=== PATIENT | female | born 1945 | race Caucasian/White ===

== ENCOUNTER 2018-03-12 20:21 | Observation (INO) | payer MEDICARE, MEDICAID ==
[~2018-03-12] VITALS: Ht 154.9 cm; Wt 60.1 kg
[2018-03-12 20:59] LABS: BASOPHILS # (AUTO) 0.03 x10^3/uL (0-0.1); BASOPHILS % (AUTO) 0 % (0-1); EOSINOPHILS # (AUTO) 0.15 x10^3/uL (0-0.4); EOSINOPHILS % (AUTO) 2 % (1-7); LYMPHOCYTES # (AUTO) 1.83 x10^3/uL (1-3.4); LYMPHOCYTES % (AUTO) 23 % (22-44); MD NO; MEAN CORPUSCULAR HGB CONC 33.3 g/dL (32.4-35.8); MEAN CORPUSCULAR VOLUME 90.1 fL (80-100); MEAN PLATELET VOLUME 8.4 fL (7.4-10.4); MONOCYTES # (AUTO) 0.61 x10^3/uL (0.2-0.8); MONOCYTES % (AUTO) 8 % (2-9); NEUTROPHILS # (AUTO) 5.18 x10^3/uL (1.8-6.8); NEUTROPHILS % (AUTO) 67 % (42-75); PLATELET COUNT 396 x10^3/uL (130-400); RED BLOOD COUNT 4.11 x10^6/uL (3.82-5.3); RED CELL DISTRIBUTION WIDTH 14.5 % (9.6-15.2)
[2018-03-12] MEDS ORDERED: INSULIN REGULAR 100 UNITS/ML, 3ML VIAL SQ-INSULIN ONE (21:00)
[2018-03-12 21:08] LABS: ACETONE, SERUM Trace (10mg/dL) mg/dL (Negative)
[2018-03-12 21:10] LABS: ALANINE AMINOTRANSFERASE 24 U/L (12-78); ANION GAP 9 mmol/L (5-15); CALCIUM 8.5 mg/dL (8.5-10.1); CHLORIDE 95 mmol/L (98-107); CREATININE 1.76 mg/dL (0.55-1.02)
[2018-03-12 21:12] LABS: ALKALINE PHOSPHATASE 115 U/L (45-117); BILIRUBIN,TOTAL 0.4 mg/dL (0.2-1.0); TOTAL PROTEIN 6.5 g/dL (6.4-8.2)
[2018-03-12] MEDS ORDERED: SODIUM CHLORIDE 0.9% 1,000ML IVBOLUS ONE ×2 (21:30→23:00)
[2018-03-12] MEDS ORDERED: PLEASE ENTER ALLERGIES MC SCH (21:30)
[2018-03-12] MEDS ORDERED: PLEASE ENTER HEIGHT AND WEIGHT MC SCH (21:30)
[2018-03-12] MEDS ORDERED: GABA300C10 PO (21:49)
[2018-03-12] MEDS ORDERED: INSU100I7 SQ-INSULIN (21:49)
[2018-03-12] MEDS ORDERED: INSU100I13 SC (21:49)
[2018-03-12] MEDS ORDERED: INSULIN REGULAR 100 UNITS/ML, 3ML VIAL ONE ×2 (22:19→22:24)
[2018-03-12] MEDS ORDERED: INSULIN REGULAR 100 UNITS/ML, 3ML VIAL IVPush ONE (22:30)
[2018-03-13] MEDS ORDERED: DOCUSATE 100 MG CAPSULE PO PRN (01:00)
[2018-03-13] MEDS: GABAPENTIN 300 MG CAPSULE PO SCH ×4 (01:00→20:06)
[2018-03-13] MEDS: INSULIN LISPRO 100 UNITS/ML, PEN SQ-INSULIN SCH ×5 (01:00→20:07)
[2018-03-13] MEDS ORDERED: GLUCAGON 1 MG IM PRN (01:00)
[2018-03-13] MEDS ORDERED: ACETAMINOPHEN 325 MG TABLET PO PRN (01:00)
[2018-03-13] MEDS ORDERED: ONDANSETRON ODT 4 MG PO PRN (01:00)
[2018-03-13] MEDS ORDERED: DEXTROSE 4 GM TAB.CHEW PO PRN (01:00)
[2018-03-13] MEDS: INSULIN GLARGINE 100 UNITS/ML, PEN SQ-INSULIN SCH ×2 (01:00→20:08)
[2018-03-13] MEDS ORDERED: LABETALOL 5MG/ML, 20ML IVPush PRN (01:00)
[2018-03-13] MEDS ORDERED: DEXTROSE 50%, 50ML SYRINGE IVPush PRN (01:00)
[2018-03-13] MEDS ORDERED: TEMAZEPAM 15 MG CAPSULE PO PRN (01:00)
[2018-03-13 01:23] LABS: MICROSCOPIC NOT IND
[2018-03-13 01:27] LABS: CULTURE INDICATED? NO
[2018-03-13] MEDS: SODIUM CHLORIDE 0.9% 1,000 ML IV SCH ×2 (01:44→09:09)
[2018-03-13 02:00] VITALS: BP 124/70
[2018-03-13 06:03] LABS: ANION GAP 6 mmol/L (5-15); CALCIUM 7.9 mg/dL (8.5-10.1); CHLORIDE 110 mmol/L (98-107); CHOLESTEROL, TOTAL 195 mg/dL (140-239); CREATININE 0.98 mg/dL (0.55-1.02)
[2018-03-13 06:08] LABS: CHOL/HDL RATIO 3.4; HDL CHOL % 29 % (28-40); HDL CHOLESTEROL (DIRECT) 57 mg/dL (40-60); LDL CHOLESTEROL,CALCULATED 120 mg/dL (54-169); LDL/HDL RATIO 2.1 (0.5-3.0); TRIGLYCERIDES 90 mg/dL (50-200); VLDL CHOLESTEROL 18 mg/dL (0-25)
[2018-03-13 06:14] LABS: HEMOGLOBIN A1C 13.2 % (4.2-6.3)
[2018-03-13 07:36] VITALS: BP 128/68
[2018-03-13] MEDS: SODIUM CHLORIDE FLUSH 10ML SYR IVF SCH ×2 (09:00→20:08)
[2018-03-13] MEDS: FAMOTIDINE 20 MG TABLET PO SCH ×2 (09:10→20:06)
[2018-03-13 12:01] VITALS: BP 132/70
[2018-03-13] MEDS: ENOXAPARIN 40 MG/0.4 ML SQ SCH (13:30)
[2018-03-13 19:46] VITALS: BP 110/66
[2018-03-13] MEDS ORDERED: INSULIN REGULAR 100 UNITS/ML, 3ML VIAL SQ-INSULIN ONE (22:00)
[2018-03-13] MEDS ORDERED: INSULIN LISPRO 100 UNITS/ML, PEN SQ-INSULIN ONE (22:00)
[2018-03-14 02:36] VITALS: BP 116/61
[2018-03-14 05:09] LABS: ANION GAP 7 mmol/L (5-15); CALCIUM 7.9 mg/dL (8.5-10.1); CHLORIDE 113 mmol/L (98-107); CREATININE 1.18 mg/dL (0.55-1.02)
[2018-03-14] MEDS: INSULIN LISPRO 100 UNITS/ML, PEN SQ-INSULIN SCH ×4 (07:00→21:39)
[2018-03-14] MEDS: GABAPENTIN 300 MG CAPSULE PO SCH ×3 (09:00→21:36)
[2018-03-14] MEDS: FAMOTIDINE 20 MG TABLET PO SCH ×2 (09:00→21:36)
[2018-03-14] MEDS: SODIUM CHLORIDE FLUSH 10ML SYR IVF SCH ×3 (09:00→21:36)
[2018-03-14 09:53] VITALS: BP 117/60
[2018-03-14 13:21] VITALS: BP 121/66
[2018-03-14] MEDS: ENOXAPARIN 40 MG/0.4 ML SQ SCH (13:30)
[2018-03-14 18:34] VITALS: BP 120/66
[2018-03-14] MEDS ORDERED: INSULIN GLARGINE 100 UNITS/ML, PEN SQ-INSULIN SCH (21:00)
[2018-03-15 01:47] VITALS: BP 115/57
[2018-03-15 05:28] LABS: ANION GAP 6 mmol/L (5-15); CALCIUM 8.3 mg/dL (8.5-10.1); CHLORIDE 107 mmol/L (98-107)
[2018-03-15 05:29] LABS: CREATININE 0.95 mg/dL (0.55-1.02)
[2018-03-15 07:05] VITALS: BP 135/68
[2018-03-15] MEDS: INSULIN LISPRO 100 UNITS/ML, PEN SQ-INSULIN SCH ×3 (08:31→17:33)
[2018-03-15] MEDS: FAMOTIDINE 20 MG TABLET PO SCH (08:31)
[2018-03-15] MEDS: GABAPENTIN 300 MG CAPSULE PO SCH ×2 (08:31→17:32)
[2018-03-15] MEDS: SODIUM CHLORIDE FLUSH 10ML SYR IVF SCH (08:31)
[2018-03-15] MEDS: ENOXAPARIN 40 MG/0.4 ML SQ SCH (13:30)
[2018-03-15] MEDS ORDERED: INSU100I11 SQ-INSULIN (13:37)
[2018-03-15] MEDS ORDERED: INSU100I13 SQ-INSULIN (13:37)
[2018-03-15 13:59] VITALS: BP 126/58
[2018-03-15 18:14] VITALS: BP 155/62
[2018-03-16] MEDS ORDERED: [UNRECOGNIZED DRUG - REMARK] (08:16)
[2018-03-16] MEDS ORDERED: [UNRECOGNIZED DRUG - REMARK] (08:16)
== END 2018-03-15 20:15 | disposition home or self-care (01) ==
LOC: ED 23:57 → EDIP 03-13 00:23 → INTOOBSV 03-13 00:23 → 3NE 03-13 01:10
PROVIDERS: ADMIT Internal Medicine; ATTEND Internal Medicine
DX: R53.1 Weakness (principal); N17.9 Acute kidney failure, unspecified; E11.65 Type 2 diabetes mellitus with hyperglycemia; G62.9 Polyneuropathy, unspecified; R35.0 Frequency of micturition; E11.21 Type 2 diabetes mellitus with diabetic nephropathy; Z91.14 Patient's other noncompliance with medication regimen; Z85.21 Personal history of malignant neoplasm of larynx; Z85.819 Personal history of malignant neoplasm of unspecified site of lip, oral cavity, and pharynx
CPT/HCPCS: 36415; 80048; 80053; 80061; 81003; 82010; 82803; 82947; 82962; 83036; 85025; 96361; 96372; 96374; 97163; 97165; 99285; G0378; J1815; J7030

== ENCOUNTER 2018-07-01 09:53 | Day surgery (SDC) | payer MEDICARE, MEDICAID ==
[~2018-07-01] VITALS: Ht 165.1 cm; Wt 55.0 kg
[~2018-07-01 09:53] MED LIST: APIX5TAB PO; GABA300C PO; GABA300C10 PO; INSU100I11 SQ-INSULIN; INSU100I13 SC; INSU100I13 SQ; INSU100I13 SQ-INSULIN; INSU100I7 SQ-INSULIN; LEVO25TA2 PO; [UNRECOGNIZED DRUG - REMARK]; [UNRECOGNIZED DRUG - REMARK]
[2018-07-01] MEDS ORDERED: OMEP-110 PO (10:54)
[2018-07-01] MEDS ORDERED: LACTATED RINGERS 1,000 ML IV SCH (11:00)
[2018-07-01 11:04] VITALS: BP 119/72
[2018-07-01] MEDS ORDERED: PROMETHAZINE 25 MG SUPP PR PRN (12:30)
[2018-07-01] MEDS ORDERED: MEPERIDINE/PF 25MG/0.5ML IVPush PRN (12:30)
[2018-07-01] MEDS ORDERED: PROMETHAZINE 12.5 MG SUPP PR PRN (12:30)
[2018-07-01] MEDS ORDERED: HYDROcodone/APAP 7.5-325MG/15ML UDC PO PRN (12:30)
[2018-07-01] MEDS ORDERED: ONDANSETRON ODT 8 MG PO PRN (12:30)
[2018-07-01] MEDS ORDERED: PROMETHAZINE 25 MG/ML, 1ML IV PRN (12:30)
[2018-07-01] MEDS ORDERED: FENTANYL PF 100 MCG/2ML IV PRN (12:30)
[2018-07-01] MEDS ORDERED: EPHEDRINE 50 MG/ML, 1ML IM PRN (12:30)
[2018-07-01] MEDS ORDERED: MIDAZOLAM 1 MG/ML, 2ML IV PRN (12:30)
[2018-07-01] MEDS ORDERED: DIPHENHYDRAMINE 50 MG/ML, 1ML IVPush PRN (12:30)
[2018-07-01] MEDS ORDERED: ONDANSETRON 2MG/ML, 2ML IV PRN (12:30)
[2018-07-01] MEDS ORDERED: HYDROcodone/APAP 7.5-325MG/15ML UDC ONE (12:45)
[2018-07-01] MEDS ORDERED: PROPOFOL 10 MG/ML, 20ML ONE (15:57)
[2018-07-01] MEDS ORDERED: PROPOFOL 10 MG/ML, 50ML ONE (15:57)
== END 2018-07-01 14:40 | disposition home or self-care (01) ==
LOC: OUT 09:53
PROVIDERS: ATTEND Surgery
DX: Z46.59 Encounter for fitting and adjustment of other gastrointestinal appliance and device (principal); Z98.890 Other specified postprocedural states; E11.9 Type 2 diabetes mellitus without complications
CPT/HCPCS: 43999; 82962; J2704

== ENCOUNTER 2018-07-24 13:51 | Inpatient (IN) | payer MEDICARE, MEDICAID ==
[~2018-07-24] VITALS: Ht 154.9 cm; Wt 55.1 kg
[~2018-07-24 13:51] MED LIST changes: +OMEP-110 PO
[2018-07-24 14:25] LABS: BASOPHILS % (AUTO) 1 % (0-1); EOSINOPHILS # (AUTO) 0.18 x10^3/uL (0-0.4); EOSINOPHILS % (AUTO) 1 % (1-7); LYMPHOCYTES # (AUTO) 1.42 x10^3/uL (1-3.4); LYMPHOCYTES % (AUTO) 11 % (22-44); MD NO; MEAN CORPUSCULAR HEMOGLOBIN 30.2 pg (27.0-34.8); MEAN CORPUSCULAR HGB CONC 33.6 g/dL (32.4-35.8); MEAN PLATELET VOLUME 7.9 fL (7.4-10.4); MONOCYTES # (AUTO) 0.86 x10^3/uL (0.2-0.8); MONOCYTES % (AUTO) 7 % (2-9); NEUTROPHILS # (AUTO) 10.46 x10^3/uL (1.8-6.8); NEUTROPHILS % (AUTO) 80 % (42-75); PLATELET COUNT 472 x10^3/uL (130-400); RED BLOOD COUNT 3.63 x10^6/uL (3.82-5.3); RED CELL DISTRIBUTION WIDTH 14.6 % (9.6-15.2)
[2018-07-24] MEDS ORDERED: SODIUM CHLORIDE FLUSH 10ML SYR IVF ONE (14:30)
[2018-07-24 14:33] LABS: ANION GAP 11 mmol/L (5-15); CALCIUM 8.7 mg/dL (8.5-10.1); CHLORIDE 100 mmol/L (98-107); CREATININE 1.06 mg/dL (0.55-1.02)
[2018-07-24 14:34] LABS: ALANINE AMINOTRANSFERASE 23 U/L (12-78); ALBUMIN 2.5 g/dL (3.4-5.0)
[2018-07-24 14:38] LABS: ALKALINE PHOSPHATASE 162 U/L (45-117); BILIRUBIN,TOTAL 0.3 mg/dL (0.2-1.0); TOTAL PROTEIN 7.7 g/dL (6.4-8.2); TROPONIN I < 0.015 ng/mL (0.000-0.045)
[2018-07-24] MEDS ORDERED: CEFTRIAXONE PMX 1GM/50ML 50 ML ONE (15:03)
[2018-07-24] MEDS: CEFTRIAXONE PMX 1GM/50ML 50 ML IV ONE ×2 (15:07→15:24)
[2018-07-24] MEDS ORDERED: ONDANSETRON 2MG/ML, 2ML IVPush PRN (16:30)
[2018-07-24 16:59] VITALS: BP 142/77
[2018-07-24 17:07] LABS: HEMOGLOBIN A1C 12.1 % (4.2-6.3)
[2018-07-24] MEDS: PIPERACILLIN/TAZO/PMX 3.375GM 50 ML IV SCH ×2 (18:06→23:32)
[2018-07-24] MEDS: INSULIN LISPRO 100 UNITS/ML, PEN SQ-INSULIN SCH ×2 (18:07→19:54)
[2018-07-24] MEDS: SODIUM CHLORIDE 0.9% 1,000 ML IV SCH (18:07)
[2018-07-24] MEDS: ENOXAPARIN 40 MG/0.4 ML SQ SCH (18:07)
[2018-07-24 18:27] VITALS: BP 126/58
[2018-07-24] MEDS: ALBUTEROL/IPRATROPIUM 2.5MG/0.5MG, 3 ML NPPB SCH (19:10)
[2018-07-24] MEDS: GABAPENTIN 300 MG CAPSULE PO SCH (19:54)
[2018-07-24] MEDS ORDERED: TEMPLATE NON-FORMULARY MED. (Gabapentin** (Neurontin**) 300 MG) PO SCH (21:00)
[2018-07-25 01:04] VITALS: BP 125/67
[2018-07-25 05:26] LABS: BASOPHILS # (AUTO) 0.03 x10^3/uL (0-0.1); BASOPHILS % (AUTO) 0 % (0-1); EOSINOPHILS # (AUTO) 0.36 x10^3/uL (0-0.4); EOSINOPHILS % (AUTO) 4 % (1-7); LYMPHOCYTES # (AUTO) 1.44 x10^3/uL (1-3.4); LYMPHOCYTES % (AUTO) 16 % (22-44); MD NO; MEAN CORPUSCULAR HEMOGLOBIN 29.8 pg (27.0-34.8); MEAN CORPUSCULAR HGB CONC 32.7 g/dL (32.4-35.8); MEAN CORPUSCULAR VOLUME 91.1 fL (80-100); MEAN PLATELET VOLUME 8.1 fL (7.4-10.4); MONOCYTES # (AUTO) 0.83 x10^3/uL (0.2-0.8); MONOCYTES % (AUTO) 9 % (2-9); NEUTROPHILS # (AUTO) 6.52 x10^3/uL (1.8-6.8); NEUTROPHILS % (AUTO) 71 % (42-75); PLATELET COUNT 500 x10^3/uL (130-400); RED BLOOD COUNT 3.67 x10^6/uL (3.82-5.3); RED CELL DISTRIBUTION WIDTH 14.7 % (9.6-15.2)
[2018-07-25 05:33] LABS: CHLORIDE 105 mmol/L (98-107)
[2018-07-25] MEDS: LEVOTHYROXINE 25 MCG TABLET PO SCH (05:35)
[2018-07-25] MEDS: PIPERACILLIN/TAZO/PMX 3.375GM 50 ML IV SCH ×2 (05:36→11:47)
[2018-07-25 05:41] LABS: ALANINE AMINOTRANSFERASE 21 U/L (12-78); ALBUMIN 2.3 g/dL (3.4-5.0); ALKALINE PHOSPHATASE 148 U/L (45-117); ANION GAP 10 mmol/L (5-15); BILIRUBIN,TOTAL 0.3 mg/dL (0.2-1.0); CREATININE 1.06 mg/dL (0.55-1.02); TOTAL PROTEIN 7.4 g/dL (6.4-8.2)
[2018-07-25 07:02] VITALS: BP 129/61
[2018-07-25] MEDS: ALBUTEROL/IPRATROPIUM 2.5MG/0.5MG, 3 ML NPPB SCH ×4 (07:17→19:42)
[2018-07-25] MEDS ORDERED: INSULIN GLARGINE 100 UNITS/ML, PEN SQ-INSULIN SCH (08:30)
[2018-07-25] MEDS: GABAPENTIN 300 MG CAPSULE PO SCH ×3 (08:44→21:39)
[2018-07-25] MEDS: SODIUM CHLORIDE 0.9% 1,000 ML IV SCH (08:44)
[2018-07-25] MEDS: INSULIN LISPRO 100 UNITS/ML, PEN SQ-INSULIN SCH ×4 (08:44→21:40)
[2018-07-25] MEDS: INSULIN GLARGINE 100 UNITS/ML, PEN SQ-INSULIN SCH (09:30)
[2018-07-25] MEDS ORDERED: AZITHROMYCIN 500 MG in SODIUM CHLORIDE 0.9% 250 ML IV SCH (12:00)
[2018-07-25 13:09] VITALS: BP 106/54
[2018-07-25 15:07] LABS: RAPID INFLUENZA A Negative (Negative); RAPID INFLUENZA B Negative (Negative)
[2018-07-25] MEDS: ENOXAPARIN 40 MG/0.4 ML SQ SCH (16:50)
[2018-07-25 20:30] VITALS: BP 111/64
[2018-07-25] MEDS ORDERED: ACETAMINOPHEN 325 MG TABLET PO PRN (21:00)
[2018-07-26] MEDS: SODIUM CHLORIDE 0.9% 1,000 ML IV SCH (00:30)
[2018-07-26 03:00] VITALS: BP 108/58
[2018-07-26 05:18] LABS: BASOPHILS # (AUTO) 0.02 x10^3/uL (0-0.1); BASOPHILS % (AUTO) 0 % (0-1); EOSINOPHILS # (AUTO) 0.34 x10^3/uL (0-0.4); EOSINOPHILS % (AUTO) 6 % (1-7); LYMPHOCYTES # (AUTO) 1.34 x10^3/uL (1-3.4); LYMPHOCYTES % (AUTO) 22 % (22-44); MD NO; MEAN CORPUSCULAR HEMOGLOBIN 29.9 pg (27.0-34.8); MEAN CORPUSCULAR HGB CONC 33.1 g/dL (32.4-35.8); MEAN CORPUSCULAR VOLUME 90.5 fL (80-100); MEAN PLATELET VOLUME 7.7 fL (7.4-10.4); MONOCYTES # (AUTO) 0.66 x10^3/uL (0.2-0.8); MONOCYTES % (AUTO) 11 % (2-9); NEUTROPHILS # (AUTO) 3.67 x10^3/uL (1.8-6.8); NEUTROPHILS % (AUTO) 61 % (42-75); PLATELET COUNT 513 x10^3/uL (130-400); RED BLOOD COUNT 3.46 x10^6/uL (3.82-5.3); RED CELL DISTRIBUTION WIDTH 14.8 % (9.6-15.2)
[2018-07-26 05:20] LABS: ANION GAP 7 mmol/L (5-15); CALCIUM 8.6 mg/dL (8.5-10.1); CHLORIDE 114 mmol/L (98-107)
[2018-07-26 05:21] LABS: CREATININE 0.73 mg/dL (0.55-1.02)
[2018-07-26] MEDS: LEVOTHYROXINE 25 MCG TABLET PO SCH (06:03)
[2018-07-26] MEDS: ALBUTEROL/IPRATROPIUM 2.5MG/0.5MG, 3 ML NPPB SCH (07:00)
[2018-07-26] MEDS ORDERED: INSULIN GLARGINE 100 UNITS/ML, PEN SQ-INSULIN SCH (07:30)
[2018-07-26 07:42] VITALS: BP 103/48
[2018-07-26 07:50] VITALS: BP 125/78
[2018-07-26] MEDS ORDERED: CEFP200T PO (08:17)
[2018-07-26] MEDS ORDERED: AZIT250T89 PO (08:17)
[2018-07-26] MEDS ORDERED: CEFTRIAXONE 1,000 MG IV ONE (08:30)
[2018-07-26] MEDS: GABAPENTIN 300 MG CAPSULE PO SCH (09:13)
[2018-07-26] MEDS: INSULIN GLARGINE 100 UNITS/ML, PEN SQ-INSULIN SCH (09:14)
[2018-07-26] MEDS: INSULIN LISPRO 100 UNITS/ML, PEN SQ-INSULIN SCH (09:14)
[2018-07-26] MEDS ORDERED: CEFTRIAXONE PMX 1GM/50ML 50 ML IV ONE ×2 (10:30→15:00)
== END 2018-07-26 10:58 | disposition home or self-care (01) | DRG 194 ==
LOC: ED 14:45 → EDIP 16:20 → 4WST 17:00 → DCLOUNGE 07-26 10:40
PROVIDERS: ADMIT Hospitalist; ATTEND Hospitalist
DX: J18.9 Pneumonia, unspecified organism (principal); E44.0 Moderate protein-calorie malnutrition; F17.200 Nicotine dependence, unspecified, uncomplicated; E11.65 Type 2 diabetes mellitus with hyperglycemia; Z59.0 Homelessness; Z79.4 Long term (current) use of insulin; Z85.819 Personal history of malignant neoplasm of unspecified site of lip, oral cavity, and pharynx; Z86.718 Personal history of other venous thrombosis and embolism; Z87.01 Personal history of pneumonia (recurrent); Z93.4 Other artificial openings of gastrointestinal tract status; Z79.899 Other long term (current) drug therapy; Z68.23 Body mass index [BMI] 23.0-23.9, adult
CPT/HCPCS: 36415; 71045; 80048; 80053; 82947; 82962; 83036; 83735; 84145; 84439; 84443; 84484; 85025; 87040; 87400; 90656; 93005; 93970; 94640; 96365; 99285; G0378; J0456; J0696; J1650; J2543; J7620; J1815; J7030; J7050

== ENCOUNTER 2018-09-25 08:30 | Inpatient (IN) | payer MEDICARE, MEDICAID ==
[~2018-09-25] VITALS: Ht 154.9 cm; Wt 57.2 kg
[~2018-09-25 08:30] MED LIST changes: +AZIT250T89 PO; +CEFP200T PO
--- NOTE | 2018-09-25 08:42 | NUR ---
PA AT BEDSIDE.
--- NOTE | 2018-09-25 08:44 | NUR ---
PT BIB [facility] FROM [facility] FOR COUGH WITH GREEN PHLEGM, AND BEING TIRED AND WEAK. PT HAS GREEN PHLEGM AROUND STOMA. PT IS ALERT, ORIENTED, WITH NAD. BP 134/74, O2 SAT 98%, HR 93. HISTORY OF PNEUMONIA 1 MONTH AGO. PT IS CONNECTED TO THE MONITOR. CALL LIGHT WITHIN REACH.
--- NOTE | 2018-09-25 08:48 | NUR ---
PT TAKEN TO X RAY.
[2018-09-25 09:21] LABS: BASOPHILS # (AUTO) 0.03 x10^3/uL (0-0.1); BASOPHILS % (AUTO) 1 % (0-1); EOSINOPHILS # (AUTO) 0.14 x10^3/uL (0-0.4); EOSINOPHILS % (AUTO) 2 % (1-7); LYMPHOCYTES # (AUTO) 1.18 x10^3/uL (1-3.4); LYMPHOCYTES % (AUTO) 16 % (22-44); MD NO; MEAN CORPUSCULAR HEMOGLOBIN 28.7 pg (27.0-34.8); MEAN CORPUSCULAR HGB CONC 32.7 g/dL (32.4-35.8); MEAN CORPUSCULAR VOLUME 87.9 fL (80-100); MEAN PLATELET VOLUME 8.4 fL (7.4-10.4); MONOCYTES # (AUTO) 0.37 x10^3/uL (0.2-0.8); MONOCYTES % (AUTO) 5 % (2-9); NEUTROPHILS # (AUTO) 5.63 x10^3/uL (1.8-6.8); NEUTROPHILS % (AUTO) 77 % (42-75); PLATELET COUNT 524 x10^3/uL (130-400); RED BLOOD COUNT 4.57 x10^6/uL (3.82-5.3); RED CELL DISTRIBUTION WIDTH 14.5 % (9.6-15.2)
--- NOTE | 2018-09-25 09:21 | NUR ---
PT IS RESTING IN BED, WATCHING TV, RESPIRATIONS EQUAL AND NON LABORED. NAD. PT IS CONNECTED TO THE MONITOR. CALL LIGHT WITHIN REACH.
[2018-09-25 09:36] LABS: ALKALINE PHOSPHATASE 130 U/L (45-117); BILIRUBIN,TOTAL 0.4 mg/dL (0.2-1.0); CREATININE 1.44 mg/dL (0.55-1.02); TOTAL PROTEIN 7.5 g/dL (6.4-8.2)
[2018-09-25 09:42] LABS: CHLORIDE 93 mmol/L (98-107)
[2018-09-25 09:43] LABS: ALANINE AMINOTRANSFERASE 17 U/L (12-78); ALBUMIN 3.3 g/dL (3.4-5.0); ANION GAP 7 mmol/L (5-15); CALCIUM 9.5 mg/dL (8.5-10.1)
--- NOTE | 2018-09-25 09:56 | NUR ---
LAB AT BEDSIDE.
[2018-09-25] MEDS ORDERED: SODIUM CHLORIDE 0.9% 1,000ML IVBOLUS ONE (10:00)
[2018-09-25 10:10] LABS: PH, VENOUS 7.439 pH (7.320-7.420)
[2018-09-25 10:11] LABS: O2 FLOW ROOM AIR L/min
--- NOTE | 2018-09-25 10:17 | NUR ---
PT IS RESTING IN BED, PLAYING GAMES ON HER PHONE, RESPIRATIONS EQUAL AND NON LABORED. NAD. PT IS CONNECTED TO THE MONITOR. CALL LIGHT WITHIN REACH.
[2018-09-25 10:44] LABS: ACETONE, SERUM Trace (10mg/dL) mg/dL (Negative)
[2018-09-25] MEDS ORDERED: INSULIN REGULAR 100 UNITS/ML, 3ML VIAL ONE (11:00)
[2018-09-25] MEDS ORDERED: INSULIN REGULAR 100 UNITS/ML, 3ML VIAL SQ-INSULIN SCH (11:00)
--- NOTE | 2018-09-25 11:06 | NUR ---
PT MEDICATED PER ORDER. MD AT BEDSIDE.
--- NOTE | 2018-09-25 11:52 | NUR ---
Report given to Enio REILLY.
[2018-09-25] MEDS: SODIUM CHLORIDE 0.9% 1,000 ML IV SCH (13:46)
[2018-09-25] MEDS ORDERED: ONDANSETRON ODT 4 MG PO PRN (14:00)
[2018-09-25 14:14] LABS: HEMOGLOBIN A1C 15.4 % (4.2-6.3)
[2018-09-25] MEDS: HEPARIN 5,000 UNITS/ML, 1ML SQ SCH ×2 (14:29→23:29)
[2018-09-25 14:30] LABS: FREE T4 (FREE THYROXINE) 0.52 ng/dL (0.76-1.46); THYROID STIMULATING HORMONE 74.1 mIU/L (0.358-3.740)
[2018-09-25] MEDS: NICOTINE 7 MG/24 HR PATCH.TD24 TD SCH (14:33)
[2018-09-25] MEDS: INSULIN LISPRO 100 UNITS/ML, PEN SQ-INSULIN SCH ×2 (16:00→21:31)
[2018-09-25 17:16] LABS: ANION GAP 9 mmol/L (5-15); CALCIUM 9.5 mg/dL (8.5-10.1); CHLORIDE 101 mmol/L (98-107); CREATININE 1.09 mg/dL (0.55-1.02)
[2018-09-25] MEDS: GABAPENTIN 300 MG CAPSULE PO SCH ×2 (17:23→20:49)
[2018-09-25 20:06] VITALS: BP 112/51
[2018-09-25] MEDS ORDERED: INSULIN GLARGINE 100 UNITS/ML, PEN SQ-INSULIN SCH (21:00)
[2018-09-26] MEDS: SODIUM CHLORIDE 0.9% 1,000 ML IV SCH ×3 (01:17→15:20)
[2018-09-26 01:45] VITALS: BP 119/67
[2018-09-26 05:48] LABS: BASOPHILS # (AUTO) 0.03 x10^3/uL (0-0.1); BASOPHILS % (AUTO) 1 % (0-1); EOSINOPHILS # (AUTO) 0.36 x10^3/uL (0-0.4); EOSINOPHILS % (AUTO) 5 % (1-7); LYMPHOCYTES # (AUTO) 2.09 x10^3/uL (1-3.4); LYMPHOCYTES % (AUTO) 31 % (22-44); MD NO; MEAN CORPUSCULAR HEMOGLOBIN 29.4 pg (27.0-34.8); MEAN CORPUSCULAR VOLUME 89.3 fL (80-100); MONOCYTES # (AUTO) 0.47 x10^3/uL (0.2-0.8); MONOCYTES % (AUTO) 7 % (2-9); NEUTROPHILS # (AUTO) 3.84 x10^3/uL (1.8-6.8); NEUTROPHILS % (AUTO) 57 % (42-75); PLATELET COUNT 469 x10^3/uL (130-400); RED BLOOD COUNT 4.43 x10^6/uL (3.82-5.3); RED CELL DISTRIBUTION WIDTH 14.6 % (9.6-15.2)
[2018-09-26 05:56] LABS: CHLORIDE 106 mmol/L (98-107)
[2018-09-26] MEDS ORDERED: LEVOTHYROXINE 25 MCG TABLET PO SCH (06:00)
[2018-09-26 06:04] LABS: ALANINE AMINOTRANSFERASE 13 U/L (12-78); ALBUMIN 2.5 g/dL (3.4-5.0); ALKALINE PHOSPHATASE 95 U/L (45-117); ANION GAP 8 mmol/L (5-15); BILIRUBIN,TOTAL 0.5 mg/dL (0.2-1.0); CALCIUM 9.2 mg/dL (8.5-10.1); CREATININE 1.07 mg/dL (0.55-1.02)
[2018-09-26 07:22] VITALS: BP 121/72
[2018-09-26] MEDS: INSULIN LISPRO 100 UNITS/ML, PEN SQ-INSULIN SCH ×2 (07:53→11:00)
[2018-09-26] MEDS: GABAPENTIN 300 MG CAPSULE PO SCH (07:54)
[2018-09-26] MEDS: HEPARIN 5,000 UNITS/ML, 1ML SQ SCH ×2 (07:54→15:00)
[2018-09-26] MEDS ORDERED: OMEPRAZOLE 20 MG CAPSULE.DR PO SCH (09:00)
[2018-09-26] MEDS ORDERED: GUAI200T3 PO (12:13)
[2018-09-26] MEDS ORDERED: INSU100I11 SQ-INSULIN (12:13)
[2018-09-26] MEDS ORDERED: OMEP-110 PO (12:13)
[2018-09-26] MEDS ORDERED: LEVO25TA2 PO (12:13)
[2018-09-26] MEDS ORDERED: GABA300C PO (12:13)
[2018-09-26] MEDS ORDERED: INSU100I13 SQ-INSULIN (12:13)
[2018-09-26 12:38] VITALS: BP 139/75
[2018-09-26] MEDS: NICOTINE 7 MG/24 HR PATCH.TD24 TD SCH (14:00)
== END 2018-09-26 15:58 | disposition home or self-care (01) | DRG 682 ==
LOC: ED 09:17 → EDIP 11:19 → 4EST 12:15 → DCLOUNGE 09-26 15:38
PROVIDERS: ADMIT Family Medicine; ATTEND Family Medicine
DX: N17.0 Acute kidney failure with tubular necrosis (principal); E11.00 Type 2 diabetes mellitus with hyperosmolarity without nonketotic hyperglycemic-hyperosmolar coma (NKHHC); E87.1 Hypo-osmolality and hyponatremia; E11.65 Type 2 diabetes mellitus with hyperglycemia; B34.9 Viral infection, unspecified; E86.0 Dehydration; F17.210 Nicotine dependence, cigarettes, uncomplicated; K21.9 Gastro-esophageal reflux disease without esophagitis; Z59.0 Homelessness; J20.8 Acute bronchitis due to other specified organisms; Z79.4 Long term (current) use of insulin; Z85.819 Personal history of malignant neoplasm of unspecified site of lip, oral cavity, and pharynx; Z86.718 Personal history of other venous thrombosis and embolism; Z91.14 Patient's other noncompliance with medication regimen
CPT/HCPCS: 36415; 71046; 80048; 80053; 82010; 82803; 82962; 83036; 83735; 84100; 84439; 84443; 85025; 96372; 99285; G0378; J1644; J1815; J7030

== ENCOUNTER 2018-10-03 09:59 | Emergency (ER) | payer MEDICARE, MEDICAID ==
[~2018-10-03] VITALS: Ht 154.9 cm; Wt 58.0 kg
[~2018-10-03 09:59] MED LIST changes: +GUAI200T3 PO
[2018-10-03] MEDS ORDERED: SODIUM CHLORIDE 0.9% 1,000ML IVBOLUS ONE ×2 (11:00→12:30)
[2018-10-03 11:38] LABS: PH, VENOUS 7.361 pH (7.320-7.420)
[2018-10-03 11:39] LABS: FIO2 ROOM AIR %
[2018-10-03 11:45] LABS: BASOPHILS # (AUTO) 0.02 x10^3/uL (0-0.1); BASOPHILS % (AUTO) 0 % (0-1); EOSINOPHILS # (AUTO) 0.25 x10^3/uL (0-0.4); EOSINOPHILS % (AUTO) 3 % (1-7); LYMPHOCYTES # (AUTO) 1.41 x10^3/uL (1-3.4); LYMPHOCYTES % (AUTO) 18 % (22-44); MD NO; MEAN CORPUSCULAR HEMOGLOBIN 29.2 pg (27.0-34.8); MEAN CORPUSCULAR HGB CONC 32.5 g/dL (32.4-35.8); MEAN CORPUSCULAR VOLUME 89.9 fL (80-100); MEAN PLATELET VOLUME 8.3 fL (7.4-10.4); MONOCYTES # (AUTO) 0.57 x10^3/uL (0.2-0.8); MONOCYTES % (AUTO) 7 % (2-9); NEUTROPHILS # (AUTO) 5.78 x10^3/uL (1.8-6.8); NEUTROPHILS % (AUTO) 72 % (42-75); PLATELET COUNT 389 x10^3/uL (130-400); RED BLOOD COUNT 4.53 x10^6/uL (3.82-5.3); RED CELL DISTRIBUTION WIDTH 14.8 % (9.6-15.2)
[2018-10-03 11:59] LABS: ALANINE AMINOTRANSFERASE 18 U/L (12-78); ALBUMIN 3.4 g/dL (3.4-5.0); ANION GAP 8 mmol/L (5-15); CALCIUM 9.1 mg/dL (8.5-10.1); CHLORIDE 98 mmol/L (98-107); CREATININE 1.27 mg/dL (0.55-1.02)
[2018-10-03 12:01] LABS: ALKALINE PHOSPHATASE 124 U/L (45-117); BILIRUBIN,TOTAL 0.2 mg/dL (0.2-1.0); TOTAL PROTEIN 7.4 g/dL (6.4-8.2)
[2018-10-03] MEDS ORDERED: INSULIN REGULAR 100 UNITS/ML, 3ML VIAL ONE (12:22)
[2018-10-03] MEDS ORDERED: INSULIN REGULAR 100 UNITS/ML, 3ML VIAL IVPush ONE (12:30)
[2018-10-03] MEDS ORDERED: SODIUM CHLORIDE 0.9% 1,000 ML IV ONE (12:30)
[2018-10-03 12:33] LABS: ACETONE, SERUM Negative (Negative)
[2018-10-03 14:49] VITALS: BP 143/72
== END 2018-10-03 14:51 | disposition home or self-care (01) ==
LOC: ED 10:16
DX: E11.65 Type 2 diabetes mellitus with hyperglycemia (principal); B34.9 Viral infection, unspecified; R05 Cough; Z72.9 Problem related to lifestyle, unspecified; Z79.899 Other long term (current) drug therapy
CPT/HCPCS: 36415; 71046; 80053; 82010; 82803; 82962; 85025; 93005; 96361; 96374; 99284; J7030

== ENCOUNTER 2018-10-16 06:57 | Observation (INO) | payer MEDICARE, MEDICAID ==
[~2018-10-16] VITALS: Ht 154.9 cm; Wt 57.2 kg
--- NOTE | 2018-10-16 07:15 | NUR ---
PT BIB EMS FROM [facility] DR[facility] IN SKILLED NURSING FOR N/V/D STARTING TODAY AT 0400. PT DENIES ANY RECENT ABX OR HX OF C DIFF. PT GIVEN 4 MF ODT ZOFRAN PER EMS, DENIES ANY ANAUSEA IN ED. PT ABLE TO TRANSFER FROM EMS [facility] TO ED [facility] WITHOUT ASSISTANCE. INTO GOWN, SPO2 AND NIBP MONITORS IN PLACE. NADN. VSS.
--- NOTE | 2018-10-16 07:18 | NUR ---
SPECIAL CONTACT PRECAUTIONS IN PLACE FOR C DIFF RULE OUT.
[2018-10-16 07:28] LABS: BASOPHILS # (AUTO) 0.02 x10^3/uL (0-0.1); BASOPHILS % (AUTO) 0 % (0-1); EOSINOPHILS # (AUTO) 0.15 x10^3/uL (0-0.4); EOSINOPHILS % (AUTO) 2 % (1-7); LYMPHOCYTES # (AUTO) 0.56 x10^3/uL (1-3.4); LYMPHOCYTES % (AUTO) 7 % (22-44); MD NO; MEAN CORPUSCULAR HEMOGLOBIN 28.7 pg (27.0-34.8); MEAN CORPUSCULAR HGB CONC 32.6 g/dL (32.4-35.8); MONOCYTES # (AUTO) 0.54 x10^3/uL (0.2-0.8); MONOCYTES % (AUTO) 6 % (2-9); NEUTROPHILS # (AUTO) 7.38 x10^3/uL (1.8-6.8); NEUTROPHILS % (AUTO) 85 % (42-75); PLATELET COUNT 465 x10^3/uL (130-400); RED BLOOD COUNT 5.04 x10^6/uL (3.82-5.3); RED CELL DISTRIBUTION WIDTH 15.1 % (9.6-15.2)
[2018-10-16 07:30] LABS: ALANINE AMINOTRANSFERASE 45 U/L (12-78); ALBUMIN 3.4 g/dL (3.4-5.0); ANION GAP 9 mmol/L (5-15); CALCIUM 8.9 mg/dL (8.5-10.1); CHLORIDE 100 mmol/L (98-107); CREATININE 1.25 mg/dL (0.55-1.02)
[2018-10-16] MEDS ORDERED: FAMOTIDINE 20 MG/2 ML IVP ONE (07:30)
[2018-10-16] MEDS ORDERED: ONDANSETRON 2MG/ML, 2ML IVPush ONE (07:30)
[2018-10-16] MEDS ORDERED: SODIUM CHLORIDE FLUSH 10ML SYR IVF ONE (07:30)
[2018-10-16 07:33] LABS: ALKALINE PHOSPHATASE 136 U/L (45-117); BILIRUBIN,TOTAL 0.4 mg/dL (0.2-1.0); TOTAL PROTEIN 7.8 g/dL (6.4-8.2)
[2018-10-16 07:57] LABS: ACETONE, SERUM Small (20mg/dL) mg/dL (Negative)
[2018-10-16] MEDS ORDERED: SODIUM CHLORIDE 0.9% 1,000ML IVBOLUS ONE ×2 (08:00)
[2018-10-16] MEDS ORDERED: ONDANSETRON 2MG/ML, 2ML ONE (08:07)
[2018-10-16] MEDS ORDERED: FAMOTIDINE 20 MG/2 ML ONE (08:08)
--- NOTE | 2018-10-16 08:28 | NUR ---
IVF INFUSING PER ORDER. PT REFUSING ORDERED ZOFRAN AT THIS TIME.
--- NOTE | 2018-10-16 09:36 | NUR ---
PT RESTING ON YAZ. ALL CONCERNS ADRESSED. VSS.
[2018-10-16] MEDS ORDERED: INSULIN REGULAR 100 UNITS/ML, 3ML VIAL ONE (09:44)
[2018-10-16] MEDS ORDERED: INSULIN REGULAR 100 UNITS/ML, 3ML VIAL SQ-INSULIN ONE (10:00)
--- NOTE | 2018-10-16 14:07 | NUR ---
PT AMBULATORY TO BEDSIDE CAMODE WITH STEADY GAIT TO PROVIDE URINE AND STOOL SAMPLE. SAMPLES WALKED TO LAB.
--- NOTE | 2018-10-16 14:18 | NUR ---
Andrés zarate in [facility] - 10/16/18 at 1419 by YUE SONIA REILLY: MED REC COMPLETED
[2018-10-16 14:24] LABS: CULTURE INDICATED? NO; MICROSCOPIC NOT IND
--- NOTE | 2018-10-16 14:33 | NUR ---
REPORT CALLED SAMPSON REILLY [id number]
[2018-10-16 15:15] VITALS: BP 118/70
[2018-10-16 15:15] LABS: CLOSTRIDIUM DIFFICILE ANTIGEN NEGATIVE; CLOSTRIDIUM DIFFICILE TOXIN NEGATIVE (Negative)
[2018-10-16] MEDS ORDERED: PROMETHAZINE 25 MG/ML, 1ML IM PRN (17:00)
[2018-10-16] MEDS: NICOTINE 7 MG/24 HR PATCH.TD24 TD SCH (17:00)
[2018-10-16] MEDS ORDERED: DEXTROSE 4 GM TAB.CHEW PO PRN (17:00)
[2018-10-16] MEDS ORDERED: GLUCAGON 1 MG IM PRN (17:00)
[2018-10-16] MEDS ORDERED: LOPERAMIDE 2 MG CAPSULE PO ONE (17:00)
[2018-10-16] MEDS ORDERED: LIDODERM 5% PATCH TD PRN (17:00)
[2018-10-16] MEDS ORDERED: hydrALAzine 20 MG/ML, 1ML IVPush PRN (17:00)
[2018-10-16] MEDS ORDERED: ONDANSETRON 2MG/ML, 2ML IVPush PRN (17:00)
[2018-10-16] MEDS ORDERED: ONDANSETRON ODT 4 MG PO PRN (17:00)
[2018-10-16] MEDS ORDERED: DEXTROSE 50%, 50ML SYRINGE IVPush PRN (17:00)
[2018-10-16] MEDS ORDERED: LABETALOL 5MG/ML, 20ML IVPush PRN (17:00)
[2018-10-16] MEDS: SODIUM CHLORIDE 0.9% 1,000 ML IV SCH (17:42)
[2018-10-16] MEDS: GABAPENTIN 300 MG CAPSULE PO SCH ×2 (17:42→20:34)
[2018-10-16 17:46] LABS: HEMOGLOBIN A1C 15.7 % (4.2-6.3)
[2018-10-16 19:51] VITALS: BP 116/58
[2018-10-16] MEDS: HEPARIN 5,000 UNITS/ML, 1ML SQ SCH (20:34)
[2018-10-16] MEDS: SODIUM CHLORIDE FLUSH 10ML SYR IVF SCH (20:35)
[2018-10-16] MEDS: INSULIN GLARGINE 100 UNITS/ML, PEN SQ-INSULIN SCH (21:44)
[2018-10-16] MEDS: INSULIN LISPRO 100 UNITS/ML, PEN SQ-INSULIN SCH (21:44)
[2018-10-17] MEDS: SODIUM CHLORIDE 0.9% 1,000 ML IV SCH (00:42)
[2018-10-17 01:07] VITALS: BP 94/56
[2018-10-17] MEDS: HEPARIN 5,000 UNITS/ML, 1ML SQ SCH ×4 (04:32→22:00)
[2018-10-17] MEDS: LEVOTHYROXINE 25 MCG TABLET PO SCH (05:22)
[2018-10-17 05:45] LABS: BASOPHILS # (AUTO) 0.01 x10^3/uL (0-0.1); BASOPHILS % (AUTO) 0 % (0-1); EOSINOPHILS % (AUTO) 3 % (1-7); LYMPHOCYTES # (AUTO) 0.78 x10^3/uL (1-3.4); LYMPHOCYTES % (AUTO) 11 % (22-44); MD NO; MEAN CORPUSCULAR HEMOGLOBIN 29.4 pg (27.0-34.8); MEAN CORPUSCULAR HGB CONC 33.4 g/dL (32.4-35.8); MEAN PLATELET VOLUME 8.1 fL (7.4-10.4); MONOCYTES # (AUTO) 0.43 x10^3/uL (0.2-0.8); MONOCYTES % (AUTO) 6 % (2-9); NEUTROPHILS # (AUTO) 5.78 x10^3/uL (1.8-6.8); NEUTROPHILS % (AUTO) 80 % (42-75); PLATELET COUNT 371 x10^3/uL (130-400); RED BLOOD COUNT 4.22 x10^6/uL (3.82-5.3); RED CELL DISTRIBUTION WIDTH 15.3 % (9.6-15.2)
[2018-10-17 06:14] LABS: CHLORIDE 114 mmol/L (98-107)
[2018-10-17 06:34] LABS: ALANINE AMINOTRANSFERASE 32 U/L (12-78); ALBUMIN 2.4 g/dL (3.4-5.0); ALKALINE PHOSPHATASE 95 U/L (45-117); ANION GAP 8 mmol/L (5-15); BILIRUBIN,TOTAL 0.4 mg/dL (0.2-1.0); CALCIUM 7.2 mg/dL (8.5-10.1); CREATININE 0.74 mg/dL (0.55-1.02); TOTAL PROTEIN 5.7 g/dL (6.4-8.2)
[2018-10-17 06:48] VITALS: BP 100/58
[2018-10-17] MEDS ORDERED: POTASSIUM PHOSPHATE 22 MEQ in SODIUM CHLORIDE 0.9% 500 ML IV ONE (07:30)
[2018-10-17] MEDS ORDERED: MAGNESIUM SULFATE PMX 2GM/50ML 50 ML IV ONE (07:30)
[2018-10-17] MEDS: INSULIN LISPRO 100 UNITS/ML, PEN SQ-INSULIN SCH ×4 (07:36→21:00)
[2018-10-17] MEDS: SODIUM CHLORIDE FLUSH 10ML SYR IVF SCH ×2 (08:28→22:46)
[2018-10-17] MEDS: OMEPRAZOLE 20 MG CAPSULE.DR PO SCH (08:28)
[2018-10-17] MEDS: GABAPENTIN 300 MG CAPSULE PO SCH ×3 (08:29→22:46)
[2018-10-17] MEDS: LOPERAMIDE 2 MG CAPSULE PO PRN ×2 (09:59→22:46)
[2018-10-17 10:40] LABS: RAPID INFLUENZA A Negative (Negative); RAPID INFLUENZA B Negative (Negative)
[2018-10-17 13:35] VITALS: BP 102/63
[2018-10-17] MEDS: NICOTINE 7 MG/24 HR PATCH.TD24 TD SCH (17:00)
[2018-10-17 19:06] VITALS: BP 103/53
[2018-10-17] MEDS: ACETAMINOPHEN 325 MG TABLET PO PRN (22:46)
[2018-10-17] MEDS: INSULIN GLARGINE 100 UNITS/ML, PEN SQ-INSULIN SCH (22:47)
[2018-10-18 01:12] VITALS: BP 95/55
[2018-10-18 05:37] LABS: CHLORIDE 115 mmol/L (98-107)
[2018-10-18] MEDS: LOPERAMIDE 2 MG CAPSULE PO PRN (05:50)
[2018-10-18] MEDS: HEPARIN 5,000 UNITS/ML, 1ML SQ SCH ×2 (05:50→14:00)
[2018-10-18] MEDS: LEVOTHYROXINE 25 MCG TABLET PO SCH (05:50)
[2018-10-18 06:02] LABS: ALANINE AMINOTRANSFERASE 24 U/L (12-78); ALBUMIN 2.2 g/dL (3.4-5.0); ALKALINE PHOSPHATASE 84 U/L (45-117); ANION GAP 7 mmol/L (5-15); BILIRUBIN,TOTAL 0.2 mg/dL (0.2-1.0); CALCIUM 6.8 mg/dL (8.5-10.1); CREATININE 0.78 mg/dL (0.55-1.02); TOTAL PROTEIN 5.4 g/dL (6.4-8.2)
[2018-10-18 06:56] VITALS: BP 96/57
[2018-10-18] MEDS: INSULIN LISPRO 100 UNITS/ML, PEN SQ-INSULIN SCH ×2 (07:27→11:00)
[2018-10-18] MEDS ORDERED: POTASSIUM CHLORIDE 20 MEQ TAB.ER.PRT PO ONE (08:00)
[2018-10-18] MEDS ORDERED: POTASSIUM PHOSPHATE 22 MEQ in SODIUM CHLORIDE 0.9% 500 ML IV ONE (08:00)
[2018-10-18] MEDS: OMEPRAZOLE 20 MG CAPSULE.DR PO SCH (09:08)
[2018-10-18] MEDS: GABAPENTIN 300 MG CAPSULE PO SCH (09:08)
[2018-10-18] MEDS: SODIUM CHLORIDE FLUSH 10ML SYR IVF SCH (09:08)
[2018-10-18] MEDS: ACETAMINOPHEN 325 MG TABLET PO PRN (09:13)
[2018-10-18 12:21] VITALS: BP 106/62
[2018-10-18] MEDS ORDERED: LOPE2CAP PO (12:39)
== END 2018-10-18 15:33 | disposition home or self-care (01) ==
LOC: ED 08:53 → INTOOBSV 09:25 → EDIP 09:25 → 3NE 15:00 → DCLOUNGE 10-18 15:25
PROVIDERS: ADMIT Internal Medicine; ATTEND Internal Medicine
DX: K52.9 Noninfective gastroenteritis and colitis, unspecified (principal); E86.0 Dehydration; E87.1 Hypo-osmolality and hyponatremia; E11.65 Type 2 diabetes mellitus with hyperglycemia; E87.6 Hypokalemia; E83.42 Hypomagnesemia; F17.210 Nicotine dependence, cigarettes, uncomplicated; E83.39 Other disorders of phosphorus metabolism; K21.9 Gastro-esophageal reflux disease without esophagitis; Z59.0 Homelessness; Z79.4 Long term (current) use of insulin; Z85.21 Personal history of malignant neoplasm of larynx; Z85.819 Personal history of malignant neoplasm of unspecified site of lip, oral cavity, and pharynx; Z86.718 Personal history of other venous thrombosis and embolism; Z90.49 Acquired absence of other specified parts of digestive tract; Z93.0 Tracheostomy status
CPT/HCPCS: 36415; 74022; 80053; 81003; 82010; 82800; 82962; 83036; 83690; 83735; 84100; 85025; 87324; 87400; 89055; 93005; 96361; 96365; 96366; 96368; 96372; 96375; 97162; 99284; G0378; G8978; G8979; G8980; J1644; J1815; J3475; J3490; J7030; J7040

== ENCOUNTER 2018-12-10 07:45 | Inpatient (IN) | payer MEDICARE, MEDICAID ==
[~2018-12-10] VITALS: Ht 154.9 cm; Wt 59.7 kg
[2018-12-10] VITALS (8 sets, daily range): BP systolic 74–95; BP diastolic 36–54
[~2018-12-10 07:45] MED LIST changes: +LOPE2CAP PO
--- NOTE | 2018-12-10 07:55 | NUR ---
BIB EMS, C/O N/V SINCE LAST NIGHT. REC'D 4MG ZOFRAN ODT CIRCUS ROUSTABOUT FROM EMS. VSS. PT AMB TO BATHROOM USING CANE, SLOW LIMPING GAIT. PT VERBALIZES "I'M SO WEAK" PT INST ON COLLECTION OF URINE SAMPLE.
--- NOTE | 2018-12-10 08:03 | NUR ---
PT RTD TO ROOM FROM BATHROOM W/O INCIDENT. BP AND PULSE OX MONITORS PLACED. CALL LIGHT W/I REACH
[2018-12-10 09:01] LABS: MEAN CORPUSCULAR HEMOGLOBIN 28.8 pg (27.0-34.8); MEAN CORPUSCULAR HGB CONC 33.2 g/dL (32.4-35.8); MEAN CORPUSCULAR VOLUME 86.7 fL (80-100); MEAN PLATELET VOLUME 8.1 fL (7.4-10.4); PLATELET COUNT 362 x10^3/uL (130-400); RED BLOOD COUNT 4.85 x10^6/uL (3.82-5.3); RED CELL DISTRIBUTION WIDTH 14.9 % (9.6-15.2)
[2018-12-10 09:05] LABS: ALBUMIN 3.1 g/dL (3.4-5.0); ANION GAP 9 mmol/L (5-15); CALCIUM 8.5 mg/dL (8.5-10.1); CHLORIDE 100 mmol/L (98-107); CREATININE 1.26 mg/dL (0.55-1.02)
[2018-12-10 09:14] LABS: MICROSCOPIC NOT IND
[2018-12-10 09:19] LABS: MD YES
[2018-12-10 09:21] LABS: <PLATELET ESTIMATE> ADEQUATE; <PLT MORPHOLOGY> NORMAL PLT MORPH; <RBC MORPHOLOGY> NORMAL; BAND#(MANUAL) 2.07 x10^3/uL; BANDS%(MANUAL) 28 % (0-7); LYMPH#(MANUAL) 0.07 x10^3/uL (1-3.4); LYMPHS% (MANUAL) 1 % (22-44); MONOS% (MANUAL) 4 % (2-9); SEG#(MANUAL) 4.96 x10^3/uL (1.8-6.8); SEGS% (MANUAL) 67 % (42-75)
[2018-12-10 09:24] LABS: CULTURE INDICATED? NO
[2018-12-10] MEDS ORDERED: SODIUM CHLORIDE 0.9% 1,000ML IVBOLUS ONE ×2 (09:30)
--- NOTE | 2018-12-10 09:56 | NUR ---
SBAR RPT TO MELBA SHELLEY
--- NOTE | 2018-12-10 10:09 | NUR ---
report from janae rodriguez. pt resting in room. vss. awaiting room assingment.
[2018-12-10 10:20] LABS: ACETONE, SERUM Small (20mg/dL) mg/dL (Negative)
--- NOTE | 2018-12-10 10:35 | NUR ---
hospitalist at bedside.
[2018-12-10] MEDS ORDERED: SODIUM CHLORIDE 0.9% 1,000 ML IV SCH (10:37)
[2018-12-10] MEDS ORDERED: OXYcodone IR 5MG TABLET PO PRN (11:00)
[2018-12-10] MEDS: ENOXAPARIN 40 MG/0.4 ML SQ SCH (11:00)
[2018-12-10] MEDS ORDERED: ONDANSETRON 2MG/ML, 2ML IVPush PRN (11:00)
[2018-12-10] MEDS ORDERED: LABETALOL 5MG/ML, 20ML IVPush PRN (11:00)
[2018-12-10] MEDS ORDERED: GUAIFENESIN/COD200MG-20MG/10ML LIQUID PO PRN (11:00)
[2018-12-10] MEDS: INSULIN LISPRO 100 UNITS/ML, PEN SQ-INSULIN SCH ×3 (11:00→22:52)
[2018-12-10] MEDS ORDERED: NITROGLYCERIN 0.4 MG BOTTLE (25 TABS) SL PRN (11:00)
[2018-12-10] MEDS ORDERED: DOCUSATE 100 MG CAPSULE PO PRN (11:00)
--- NOTE | 2018-12-10 12:21 | NUR ---
PT UP TO RR WITH STANDBY ASSIST. TOLERATED WELL. VSS. NO OTHER NEEDS AT THIS TIME. AWAITING BED ASSIGNMENT.
[2018-12-10] MEDS ORDERED: MAGNESIUM SULFATE PMX 2GM/50ML 50 ML IV ONE (13:00)
--- NOTE | 2018-12-10 13:09 | NUR ---
pt resting in room with lights dimmed. vss. no needs at this time. awaiting bed assignment.
[2018-12-10] MEDS: GABAPENTIN 300 MG CAPSULE PO SCH ×2 (16:11→20:00)
[2018-12-10] MEDS: ACETAMINOPHEN 325 MG TABLET PO PRN (16:12)
[2018-12-10 16:39] LABS: ANION GAP 6 mmol/L (5-15); CHLORIDE 106 mmol/L (98-107); CREATININE 1.25 mg/dL (0.55-1.02)
[2018-12-10] MEDS: INSULIN GLARGINE 100 UNITS/ML, PEN SQ-INSULIN SCH (22:52)
[2018-12-10 22:53] LABS: BASOPHILS # (AUTO) 0.01 x10^3/uL (0-0.1); BASOPHILS % (AUTO) 0 % (0-1); EOSINOPHILS % (AUTO) 2 % (1-7); LYMPHOCYTES # (AUTO) 0.42 x10^3/uL (1-3.4); LYMPHOCYTES % (AUTO) 7 % (22-44); MD NO; MEAN CORPUSCULAR HEMOGLOBIN 29.2 pg (27.0-34.8); MEAN CORPUSCULAR HGB CONC 33.2 g/dL (32.4-35.8); MEAN CORPUSCULAR VOLUME 87.7 fL (80-100); MEAN PLATELET VOLUME 8.1 fL (7.4-10.4); MONOCYTES % (AUTO) 5 % (2-9); NEUTROPHILS # (AUTO) 5.47 x10^3/uL (1.8-6.8); NEUTROPHILS % (AUTO) 87 % (42-75); PLATELET COUNT 348 x10^3/uL (130-400); RED BLOOD COUNT 4.34 x10^6/uL (3.82-5.3); RED CELL DISTRIBUTION WIDTH 15.3 % (9.6-15.2)
[2018-12-10 23:11] LABS: ALANINE AMINOTRANSFERASE 26 U/L (12-78); ALBUMIN 2.6 g/dL (3.4-5.0); ANION GAP 5 mmol/L (5-15); CALCIUM 7.2 mg/dL (8.5-10.1); CHLORIDE 109 mmol/L (98-107); CREATININE 1.18 mg/dL (0.55-1.02)
[2018-12-10 23:13] LABS: ALKALINE PHOSPHATASE 86 U/L (45-117); BILIRUBIN,TOTAL 0.3 mg/dL (0.2-1.0)
[2018-12-10 23:32] LABS: INTERNATIONAL NORMALIZED RATIO 0.96 (0.93-1.1); PROTHROMBIN TIME 10.1 Seconds (9.6-11.5)
[2018-12-11 01:28] VITALS: BP 82/43
[2018-12-11 02:33] VITALS: BP 95/59
[2018-12-11 05:14] LABS: BASOPHILS # (AUTO) 0.01 x10^3/uL (0-0.1); BASOPHILS % (AUTO) 0 % (0-1); EOSINOPHILS # (AUTO) 0.26 x10^3/uL (0-0.4); EOSINOPHILS % (AUTO) 4 % (1-7); LYMPHOCYTES # (AUTO) 0.62 x10^3/uL (1-3.4); LYMPHOCYTES % (AUTO) 10 % (22-44); MD NO; MEAN CORPUSCULAR HEMOGLOBIN 29.4 pg (27.0-34.8); MEAN CORPUSCULAR HGB CONC 33.2 g/dL (32.4-35.8); MEAN CORPUSCULAR VOLUME 88.5 fL (80-100); MEAN PLATELET VOLUME 8.3 fL (7.4-10.4); MONOCYTES # (AUTO) 0.44 x10^3/uL (0.2-0.8); MONOCYTES % (AUTO) 7 % (2-9); NEUTROPHILS # (AUTO) 4.68 x10^3/uL (1.8-6.8); NEUTROPHILS % (AUTO) 78 % (42-75); PLATELET COUNT 321 x10^3/uL (130-400); RED BLOOD COUNT 4.14 x10^6/uL (3.82-5.3); RED CELL DISTRIBUTION WIDTH 16.1 % (9.6-15.2)
[2018-12-11 05:30] LABS: CALCIUM 7.1 mg/dL (8.5-10.1); CHLORIDE 111 mmol/L (98-107)
[2018-12-11 05:33] LABS: ANION GAP 3 mmol/L (5-15); CREATININE 0.94 mg/dL (0.55-1.02)
[2018-12-11] MEDS: LEVOTHYROXINE 25 MCG TABLET PO SCH (06:04)
[2018-12-11] MEDS: INSULIN LISPRO 100 UNITS/ML, PEN SQ-INSULIN SCH ×4 (07:25→20:55)
[2018-12-11 07:55] VITALS: BP 90/52
[2018-12-11] MEDS: GABAPENTIN 300 MG CAPSULE PO SCH ×3 (08:14→20:54)
[2018-12-11] MEDS: OMEPRAZOLE 20 MG CAPSULE.DR PO SCH (08:14)
[2018-12-11] MEDS: SODIUM CHLORIDE 0.9% 1,000 ML IV SCH ×2 (08:15→20:55)
[2018-12-11] MEDS ORDERED: POTASSIUM PHOSPHATE 44 MEQ in SODIUM CHLORIDE 0.9% 500 ML IV ONE (09:30)
[2018-12-11] MEDS: ENOXAPARIN 40 MG/0.4 ML SQ SCH ×2 (10:22→10:28)
[2018-12-11 13:37] LABS: HEMOGLOBIN A1C 15.3 % (4.2-6.3)
[2018-12-11 14:50] VITALS: BP 92/54
[2018-12-11] MEDS ORDERED: VANCOMYCIN PER PHARMACY MC PRN (17:30)
[2018-12-11] MEDS ORDERED: PHARMACOKINETIC MONITORING MC PRN (18:00)
[2018-12-11] MEDS ORDERED: VANCOMYCIN PMX 1GM/200ML 200 ML IV SCH (18:00)
[2018-12-11 18:58] VITALS: BP 95/58
[2018-12-11] MEDS: ACETAMINOPHEN 325 MG TABLET PO PRN (19:36)
[2018-12-11] MEDS: INSULIN GLARGINE 100 UNITS/ML, PEN SQ-INSULIN SCH (20:55)
[2018-12-12 00:48] VITALS: BP 94/56
[2018-12-12] MEDS: SODIUM CHLORIDE 0.9% 1,000 ML IV SCH (03:34)
[2018-12-12 05:18] LABS: ANION GAP 4 mmol/L (5-15); CALCIUM 6.7 mg/dL (8.5-10.1); CHLORIDE 114 mmol/L (98-107)
[2018-12-12 05:19] LABS: CREATININE 0.66 mg/dL (0.55-1.02)
[2018-12-12 05:20] LABS: BASOPHILS # (AUTO) 0.02 x10^3/uL (0-0.1); BASOPHILS % (AUTO) 0 % (0-1); EOSINOPHILS # (AUTO) 0.34 x10^3/uL (0-0.4); EOSINOPHILS % (AUTO) 7 % (1-7); LYMPHOCYTES # (AUTO) 1.07 x10^3/uL (1-3.4); LYMPHOCYTES % (AUTO) 22 % (22-44); MD NO; MEAN CORPUSCULAR HEMOGLOBIN 28.9 pg (27.0-34.8); MEAN CORPUSCULAR HGB CONC 32.6 g/dL (32.4-35.8); MEAN CORPUSCULAR VOLUME 88.6 fL (80-100); MONOCYTES # (AUTO) 0.45 x10^3/uL (0.2-0.8); MONOCYTES % (AUTO) 9 % (2-9); NEUTROPHILS # (AUTO) 2.95 x10^3/uL (1.8-6.8); NEUTROPHILS % (AUTO) 61 % (42-75); PLATELET COUNT 295 x10^3/uL (130-400); RED BLOOD COUNT 3.82 x10^6/uL (3.82-5.3)
[2018-12-12] MEDS: LEVOTHYROXINE 25 MCG TABLET PO SCH (05:31)
[2018-12-12] MEDS: INSULIN LISPRO 100 UNITS/ML, PEN SQ-INSULIN SCH ×4 (07:00→20:52)
[2018-12-12 07:45] VITALS: BP 106/65
[2018-12-12] MEDS: OMEPRAZOLE 20 MG CAPSULE.DR PO SCH (07:56)
[2018-12-12] MEDS: GABAPENTIN 300 MG CAPSULE PO SCH ×3 (07:56→20:52)
[2018-12-12] MEDS ORDERED: POTASSIUM PHOSPHATE 44 MEQ in SODIUM CHLORIDE 0.9% 500 ML IV ONE (08:00)
[2018-12-12] MEDS: ENOXAPARIN 40 MG/0.4 ML SQ SCH (11:00)
[2018-12-12] MEDS ORDERED: LACTATED RINGERS 500 ML IVBOLUS ONE (11:00)
[2018-12-12 14:00] VITALS: BP 109/65
[2018-12-12 20:09] VITALS: BP 118/68
[2018-12-12] MEDS: INSULIN GLARGINE 100 UNITS/ML, PEN SQ-INSULIN SCH (20:51)
[2018-12-13] MEDS: SODIUM CHLORIDE 0.9% 1,000 ML IV SCH ×2 (01:13→11:24)
[2018-12-13 01:30] VITALS: BP 118/70
[2018-12-13] MEDS: LEVOTHYROXINE 25 MCG TABLET PO SCH (05:30)
[2018-12-13 07:00] VITALS: BP 110/70
[2018-12-13] MEDS: INSULIN LISPRO 100 UNITS/ML, PEN SQ-INSULIN SCH ×3 (07:44→16:12)
[2018-12-13] MEDS: OMEPRAZOLE 20 MG CAPSULE.DR PO SCH (08:24)
[2018-12-13] MEDS: GABAPENTIN 300 MG CAPSULE PO SCH ×2 (08:24→16:12)
[2018-12-13] MEDS: ACETAMINOPHEN 325 MG TABLET PO PRN (08:27)
[2018-12-13] MEDS: ENOXAPARIN 40 MG/0.4 ML SQ SCH (11:12)
[2018-12-13 13:18] VITALS: BP 123/71
== END 2018-12-13 18:40 | DRG 682 ==
LOC: ED 09:46 → EDIP 10:10 → 3NE 15:05 → 3NW 18:12
PROVIDERS: ADMIT Hospitalist; ATTEND Hospitalist
DX: N17.0 Acute kidney failure with tubular necrosis (principal); R57.1 Hypovolemic shock; E87.1 Hypo-osmolality and hyponatremia; K52.9 Noninfective gastroenteritis and colitis, unspecified; E03.9 Hypothyroidism, unspecified; E11.22 Type 2 diabetes mellitus with diabetic chronic kidney disease; E83.39 Other disorders of phosphorus metabolism; E83.42 Hypomagnesemia; E11.65 Type 2 diabetes mellitus with hyperglycemia; F17.210 Nicotine dependence, cigarettes, uncomplicated; E11.40 Type 2 diabetes mellitus with diabetic neuropathy, unspecified; I12.9 Hypertensive chronic kidney disease with stage 1 through stage 4 chronic kidney disease, or unspecified chronic kidney disease; N18.3 Chronic kidney disease, stage 3 (moderate); Z59.0 Homelessness; Z79.4 Long term (current) use of insulin; Z82.5 Family history of asthma and other chronic lower respiratory diseases; Z85.819 Personal history of malignant neoplasm of unspecified site of lip, oral cavity, and pharynx; Z85.850 Personal history of malignant neoplasm of thyroid; Z86.718 Personal history of other venous thrombosis and embolism; Z91.14 Patient's other noncompliance with medication regimen; Z93.0 Tracheostomy status
CPT/HCPCS: 36415; 36600; 70450; 71045; 71046; 80048; 80053; 81003; 82010; 82040; 82140; 82800; 82803; 82962; 83036; 83605; 83735; 84100; 84145; 85025; 85610; 85730; 87040; 96360; 99285; G0378; J1650; J3370; J7120; J1815; J3475; J7030; J7040

== ENCOUNTER 2019-08-01 08:09 | Emergency (ER) | payer MEDICAID, MEDICARE ==
[~2019-08-01] VITALS: Ht 154.9 cm; Wt 68.0 kg
[~2019-08-01 08:09] MED LIST changes: -GUAI200T3 PO; +GUAI200T37 PO
--- NOTE | 2019-08-01 08:12 | NUR ---
PATIENT BROUGHT IN FROM [facility] BY JI WITH CHIEF COMPLAINT OF DIZZYNESS FOR THE PAST FEW DAYS. THE PATIENT IS ALERT AND ORIENTED, COMMUNICATED BY WRITING DUE TO HX OF THROAT CA.
--- NOTE | 2019-08-01 08:14 | NUR ---
FSBS 580 BY [facility]
--- NOTE | 2019-08-01 08:53 | NUR ---
REPORT TO MARISA REILLY
--- NOTE | 2019-08-01 08:54 | NUR ---
REPORT FROM MELBA DIXON.
[2019-08-01 10:30] LABS: PH, VENOUS 7.383 pH (7.320-7.420)
[2019-08-01 10:31] LABS: FIO2 RA %
[2019-08-01 10:33] LABS: BASOPHILS # (AUTO) 0.06 x10^3/uL (0-0.1); BASOPHILS % (AUTO) 1 % (0-1); EOSINOPHILS # (AUTO) 0.29 x10^3/uL (0-0.4); EOSINOPHILS % (AUTO) 3 % (1-7); LYMPHOCYTES # (AUTO) 1.96 x10^3/uL (1-3.4); LYMPHOCYTES % (AUTO) 19 % (22-44); MD NO; MEAN CORPUSCULAR HEMOGLOBIN 30.5 pg (27.0-34.8); MEAN CORPUSCULAR HGB CONC 32.5 g/dL (32.4-35.8); MEAN CORPUSCULAR VOLUME 93.8 fL (80-100); MEAN PLATELET VOLUME 8.1 fL (7.4-10.4); MONOCYTES # (AUTO) 0.56 x10^3/uL (0.2-0.8); MONOCYTES % (AUTO) 5 % (2-9); NEUTROPHILS % (AUTO) 72 % (42-75); PLATELET COUNT 525 x10^3/uL (130-400); RED BLOOD COUNT 4.12 x10^6/uL (3.82-5.3)
--- NOTE | 2019-08-01 10:41 | NUR ---
PT UP TO RESTROOM WITH ONE PERSON STEADY ASSIST. GAIT STRONG. DENIES ANY FURTHER NEEDS OR CONCERNS AT THIS TIME. CALL LIGHT IN REACH.
[2019-08-01 10:46] LABS: ALANINE AMINOTRANSFERASE 27 U/L (12-78); ALBUMIN 3.4 g/dL (3.4-5.0); ANION GAP 6 mmol/L (5-15); CALCIUM 9.4 mg/dL (8.5-10.1); CHLORIDE 103 mmol/L (98-107); CREATININE 1.11 mg/dL (0.55-1.02)
[2019-08-01 10:47] LABS: ALKALINE PHOSPHATASE 107 U/L (45-117); BILIRUBIN,TOTAL 0.3 mg/dL (0.2-1.0); TOTAL PROTEIN 7.6 g/dL (6.4-8.2)
[2019-08-01] MEDS ORDERED: INSULIN REGULAR 100 UNITS/ML, 3ML VIAL SQ-INSULIN ONE (11:30)
[2019-08-01] MEDS ORDERED: INSULIN LISPRO SINGLE DOSE, ER SQ-INSULIN ONE (11:37)
[2019-08-01 11:44] LABS: ACETONE, SERUM Negative (Negative)
[2019-08-01] MEDS ORDERED: LORazepam 1MG TABLET ONE (12:22)
[2019-08-01] MEDS ORDERED: MECLIZINE CHEWABLE 25 MG TAB ONE (12:27)
[2019-08-01] MEDS ORDERED: LORazepam 1MG TABLET PO ONE (12:30)
[2019-08-01] MEDS ORDERED: MECLIZINE 12.5 MG TABLET PO PRN (12:30)
[2019-08-01] MEDS ORDERED: MECLIZINE 25 MG TABLET PO PRN (13:00)
[2019-08-01 13:28] VITALS: BP 145/65
== END 2019-08-01 13:30 | disposition home or self-care (01) ==
LOC: ED 08:30
DX: E10.65 Type 1 diabetes mellitus with hyperglycemia (principal); R42 Dizziness and giddiness
CPT/HCPCS: 36415; 71045; 80053; 82010; 82803; 82962; 83930; 85025; 96372; 99284

== ENCOUNTER 2019-08-13 09:50 | Emergency (ER) | payer MEDICARE ==
[~2019-08-13] VITALS: Ht 157.5 cm; Wt 57.0 kg
--- NOTE | 2019-08-13 10:08 | NUR ---
PT NGUYEN WORKMAN, SENT FROM [facility] FOR :"PROBLEMS WITH TRACH SITE:" PT SATING 98% RA, NO EVIDENCE OF RESP DISTRESS ERPROVIDER IN TO EVAL PT, PT TO NIBP, CONT PULSE OX, CARD JOSIEIOR
--- NOTE | 2019-08-13 10:29 | NUR ---
RT AT BEDSIDE, PT PLACED TO [facility]
[2019-08-13 10:39] LABS: BASOPHILS # (AUTO) 0.03 x10^3/uL (0-0.1); BASOPHILS % (AUTO) 0 % (0-1); EOSINOPHILS # (AUTO) 0.23 x10^3/uL (0-0.4); EOSINOPHILS % (AUTO) 3 % (1-7); LYMPHOCYTES # (AUTO) 1.71 x10^3/uL (1-3.4); LYMPHOCYTES % (AUTO) 22 % (22-44); MD NO; MEAN CORPUSCULAR HEMOGLOBIN 30.4 pg (27.0-34.8); MEAN CORPUSCULAR HGB CONC 32.4 g/dL (32.4-35.8); MEAN CORPUSCULAR VOLUME 93.9 fL (80-100); MEAN PLATELET VOLUME 7.9 fL (7.4-10.4); MONOCYTES # (AUTO) 0.62 x10^3/uL (0.2-0.8); MONOCYTES % (AUTO) 8 % (2-9); NEUTROPHILS # (AUTO) 5.28 x10^3/uL (1.8-6.8); NEUTROPHILS % (AUTO) 67 % (42-75); PLATELET COUNT 480 x10^3/uL (130-400); RED BLOOD COUNT 4.11 x10^6/uL (3.82-5.3); RED CELL DISTRIBUTION WIDTH 13.8 % (9.6-15.2)
[2019-08-13 10:50] LABS: ANION GAP 8 mmol/L (5-15); CALCIUM 8.6 mg/dL (8.5-10.1); CHLORIDE 107 mmol/L (98-107)
[2019-08-13 10:51] LABS: CREATININE 1.08 mg/dL (0.55-1.02)
--- NOTE | 2019-08-13 10:58 | NUR ---
PT TAKEN TO IMAGING
--- NOTE | 2019-08-13 12:10 | NUR ---
PT TO CT
[2019-08-13] MEDS ORDERED: OMNIPAQUE 350 MG/ML, 100ML BOTTLE ONE (12:57)
[2019-08-13 13:30] VITALS: BP 162/81
--- NOTE | 2019-08-13 13:35 | NUR ---
PT UP FOR DISCHARGE.
--- NOTE | 2019-08-13 13:46 | NUR ---
LATE ENTRY, PT WITH LARGE MUCOUS PLUG EXPECTORATED THROUGH HER TRACH. PT REMOVED FROM O2 AND WILL BE MONITORED TO ENSURE PT MAINTAINS SATS
--- NOTE | 2019-08-13 14:48 | NUR ---
PT ABLE TO WALK TO BR WITH STEADY GAIT, RA SAT 99-100 PERCENT WHEN RETURNING TO RM, OK TO PROCEED WITH DISCHARGE. PT GIVEN DISCHARGE INSTRUCTIONS, UNDERSTANDING STATED. VERIFIED ALL BELONGINGS WITH PT ON DISCHARGE DAY. PT PROVIDED WITH [employer] VOUCHER
== END 2019-08-13 14:58 | disposition home or self-care (01) ==
LOC: ED 14:13
DX: K94.09 Other complications of colostomy (principal); I10 Essential (primary) hypertension; K21.9 Gastro-esophageal reflux disease without esophagitis; E11.65 Type 2 diabetes mellitus with hyperglycemia; Z87.891 Personal history of nicotine dependence
CPT/HCPCS: 36415; 70360; 70491; 71045; 80048; 82040; 85025; 99284; Q9967

== ENCOUNTER 2019-08-14 18:11 | Emergency (ER) | payer MEDICARE ==
[~2019-08-14] VITALS: Ht 154.9 cm; Wt 56.8 kg
--- NOTE | 2019-08-14 18:12 | NUR ---
PT NGUYEN WORKMAN FOR SOB. PER JI WAS SEEN IN ER YESTERDAY FOR SAME COMPLAINT. PT IS MISSING PIECE OF TRACH AND HAS BEEN UNABLE TO OBTAIN IT. STATES IT FEELS LIKE HER STOMA IS CLOSING UP ON HER. PT IRENE RESTING ON GURNEY. NADN. VSS. 100% ON RA. EKG BEING PERFORMED NOW.
--- NOTE | 2019-08-14 18:20 | NUR ---
MD WAS AT BEDSIDE TO ASSESS PT. PT AWARE OF POC- RT TO COME SEE PT.
[2019-08-14] MEDS ORDERED: LIDOCAINE-MPF 1%, 2ML ONE (18:29)
--- NOTE | 2019-08-14 18:39 | NUR ---
RT AT BEDSIDE.
--- NOTE | 2019-08-14 18:48 | NUR ---
RECEIVED BS REPORT FROM MELBA MIGUEL TO ASSUME CARE OF PT. RT AT BS FOR SUCTIONING.
--- NOTE | 2019-08-14 19:01 | NUR ---
REPORT GIVEN TO MELBA POOL.
[2019-08-14 19:50] VITALS: BP 141/72
== END 2019-08-14 19:57 | disposition home or self-care (01) ==
LOC: ED 19:45
DX: T17.990A Other foreign object in respiratory tract, part unspecified in causing asphyxiation, initial encounter (principal); R06.00 Dyspnea, unspecified; I10 Essential (primary) hypertension; E11.9 Type 2 diabetes mellitus without complications; Z72.9 Problem related to lifestyle, unspecified; K21.9 Gastro-esophageal reflux disease without esophagitis; X58.XXXA Exposure to other specified factors, initial encounter; Y93.89 Activity, other specified; Y92.89 Other specified places as the place of occurrence of the external cause; Y99.8 Other external cause status
CPT/HCPCS: 93005; 99283

== ENCOUNTER 2019-08-15 10:12 | Emergency (ER) | payer MEDICARE ==
[~2019-08-15] VITALS: Ht 154.9 cm; Wt 56.5 kg
--- NOTE | 2019-08-15 10:36 | NUR ---
PATIENT BROUGHT BACK FROM TRIAGE WITH CHIEF COMPLAINT OF SOB AND DIFFICULTY EXPECTORATING PHLEGM FROM STOMA (HX 1.5 YEARS). PATIENT HAS HAD COUGH FOR TWO WEEKS. THE PATIENT IS ALERT, ORIENTED, WARM, AND DRY. DENIES CP, N/V.
[2019-08-15 11:40] VITALS: BP 140/74
--- NOTE | 2019-08-15 11:46 | NUR ---
RESPIRATORY AT BEDSDIE FOR TRACH CARE
== END 2019-08-15 12:14 | disposition home or self-care (01) ==
LOC: ED 12:13
DX: T17.990A Other foreign object in respiratory tract, part unspecified in causing asphyxiation, initial encounter (principal); R06.00 Dyspnea, unspecified; K21.9 Gastro-esophageal reflux disease without esophagitis; E11.65 Type 2 diabetes mellitus with hyperglycemia; Z72.9 Problem related to lifestyle, unspecified; X58.XXXA Exposure to other specified factors, initial encounter; Y93.89 Activity, other specified; Y92.89 Other specified places as the place of occurrence of the external cause; Y99.8 Other external cause status
CPT/HCPCS: 99283

== ENCOUNTER 2019-08-21 13:03 | Emergency (ER) | payer MEDICARE, MEDICAID ==
[~2019-08-21] VITALS: Ht 154.9 cm; Wt 58.0 kg
[2019-08-21 13:06] VITALS: BP 117/65
--- NOTE | 2019-08-21 13:06 | NUR ---
PATIENT REFUSED EKG
== END 2019-08-21 14:19 | disposition home or self-care (01) ==
LOC: ED 14:00
DX: R06.00 Dyspnea, unspecified (principal); I10 Essential (primary) hypertension; E11.9 Type 2 diabetes mellitus without complications; K21.9 Gastro-esophageal reflux disease without esophagitis; F17.200 Nicotine dependence, unspecified, uncomplicated; Z85.21 Personal history of malignant neoplasm of larynx
CPT/HCPCS: 99283